=== PATIENT | male | born 1995 | race Caucasian/White ===

== ENCOUNTER 2016-09-20 12:59 | Emergency (ER) | payer OTHER ==
[2016-09-20] MEDS ORDERED: cefTRIAXone 1,000 MG VIAL IM ONE (13:06)
[2016-09-20] MEDS ORDERED: Sodium Chloride 0.9% 1,000 ML IV SCH (13:45)
[2016-09-20] MEDS ORDERED: cefTRIAXone 1,000 MG in Sodium Chloride 0.9% 50 ML IV ONE (13:55)
[2016-09-20] MEDS ORDERED: cefTRIAXone 1,000 MG VIAL ONE (13:59)
[2016-09-20] MEDS ORDERED: Morphine 2 MG/ML Syringe IVPUSH ONE (14:06)
[2016-09-20 14:27] VITALS: BP 147/84
--- NOTE | 2016-09-20 14:51 | EDM.PDOC ---
ED HPI GENERAL MEDICAL PROBLEM - General Chief Complaint: Upper Extremity Injury/Pain Stated Complaint: LEFT HAND CUT Time Seen by Provider: 09/20/16 13:31 Source of Information: Reports: Patient, Family, Other (coworker) History Limitations: Reports: Physical Impairment - History of Present Illness INITIAL COMMENTS - FREE TEXT/NARRATIVE: 20 y.o.w.m came to the ed after he cut himslf with table saw into his left little finger by accident at work. Pt was brought to the ed immediately after it happened. On arrival, the middle phalange was not connected the proximal phalanx. However, Cap refill at the tip of his left little finger was < 2sec. and there was sensation at his middle and distal phalanx, there was mod bleed. Pressure was applied, bleeding stopped. Pt denied any other medical issues at this time. 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 Pain Score (Numeric/FACES): 2 - Related Data Allergies Allergy/AdvReac Type Severity Reaction Status Date / Time No Known Allergies Allergy Verified 09/20/16 13:46 Home Meds: Home Meds NK [No Known Home Meds] 09/20/16 [History] Past Medical History - Past Health History Medical/Surgical History: Denies Medical/Surgical History Social & Family History - Tobacco Use Smoking Status *Q: Never Smoker Review of Systems - Review of Systems Review Of Systems: See Below Constitutional: Reports: No Symptoms Eyes: Reports: No Symptoms Ears: Reports: No Symptoms Nose: Reports: No Symptoms Mouth/Throat: Reports: No Symptoms Respiratory: Reports: No Symptoms Cardiovascular: Reports: No Symptoms GI/Abdominal: Reports: No Symptoms Genitourinary: Reports: No Symptoms Musculoskeletal: Reports: Other (left 5th finger injury) Skin: Reports: Wound (left 5th finger) Neurological: Reports: No Symptoms Psychiatric: Reports: No Symptoms ED EXAM, GENERAL - Physical Exam Exam: See Below Exam Limited By: No Limitations General Appearance: Alert, WD/WN, Mild Distress Eye Exam: Bilateral Eye: Normal Inspection Ears: Normal External Exam, Normal Canal Ear Exam: Bilateral Ear: Auricle Normal Nose: Normal Inspection, Normal Mucosa Throat/Mouth: Normal Inspection, Normal Lips, Normal Teeth Head: Atraumatic, Normocephalic Neck: Normal Inspection Respiratory/Chest: No Respiratory Distress, Lungs Clear, Normal Breath Sounds, No Accessory Muscle Use, Chest Non-Tender Cardiovascular: Normal Peripheral Pulses, Regular Rate, Rhythm, No Edema, No Gallop, No JVD, No Murmur, No Rub Peripheral Pulses: 1+: Femoral (L), Femoral (R) GI/Abdominal: Normal Bowel Sounds, Soft, Non-Tender, No Organomegaly (Male) Exam: No Hernia Rectal (Males) Exam: Deferred Back Exam: Normal Inspection, Full Range of Motion Extremities: Other (left middle phalanx of the 5th finger was attached loosely to the prox. phalanx. however, sensitivity and CAP refill were intact.) Neurological: Alert, Oriented, CN II-XII Intact, Normal Cognition, Normal Gait Psychiatric: Normal Affect, Normal Mood Skin Exam: Warm, Dry, Normal Color, Other (stellate lacerations left 5th finger. ) Lymphatic: No Adenopathy Course - Vital Signs Text/Narrative:: 20 y.o.w.m came to the ed after he cut himslf with table saw into his left little finger by accident at work. Pt was brought to the ed immediately after it happened. On arrival, the middle phalange was not connected the proximal phalanx. However, Cap refill at the tip of his left little finger was < 2sec. and there was sensation at his middle and distal phalanx, there was mod bleed. Pressure was applied, bleeding stopped. Pt denied any other medical issues at this time. PE: left middle phalanx of the 5th finger was attached loosely to the prox. phalanx. however, sensitivity and CAP refill were intact Imaging: prox, middle and distal phalanx were aliened well after finger splints were applied. Impression: Partial Amputation of left 5th finger, workman comp. Tx: [place], splint r 5th finger, NS Consultation: Dr. Currie, surgeon: Transfer pt to handsurgeon. Consultation: Dr. Serrano, Handsurgeon at [place]: Accepted the pt for further care. Reexam: Improved Plan: Transfer to [facility] ED, by EMS Last Recorded V/S: Last Vital Signs Temp 36.5 C 09/20/16 14:25 Pulse 90 09/20/16 14:25 Resp 16 09/20/16 14:25 BP 147/84 H 09/20/16 14:25 Pulse Ox 98 09/20/16 14:25 - Orders/Labs/Meds Orders: Active Orders 24 hr Category Date Time Status Hand Comp Min 3V Lt [CR] Stat Exams 09/20/16 13:12 Taken Labs: Laboratory Tests 09/20/16 09/20/16 Range/Units 13:46 13:46 WBC 6.8 (4.5-12.0) X10-3/uL RBC 5.37 (4.30-5.75) x10(6)uL Hgb 15.4 (11.5-15.5) g/dL Hct 45.5 (30.0-51.3) % MCV 84.8 (80-96) fL MCH 28.6 (27.7-33.6) pg MCHC 33.8 (32.2-35.4) g/dL RDW 12.4 (11.5-15.5) % Plt Count 226 (125-369) X10(3)uL MPV 8.6 (7.4-10.4) fL Neut % (Auto) 47.8 (46-82) % Lymph % (Auto) 38.8 H (13-37) % [place] % (Auto) 7.8 (4-12) % Eos % (Auto) 4 (1.0-5.0) % Baso % (Auto) 1 (0-2) % Neut # (Auto) 3.3 (1.6-8.3) # Lymph # (Auto) 2.6 (0.6-5.0) # [place] # (Auto) 0.5 (0.0-1.3) # Eos # (Auto) 0.3 (0.0-0.8) # Baso # (Auto) 0.1 (0.0-0.2) # Sodium 138 (135-145) mmol/L Potassium 3.6 (3.5-5.3) mmol/L Chloride 106 (100-110) mmol/L Carbon Dioxide 25 (23-29) mmol/L BUN 16 (5-20) mg/dL Creatinine 0.9 (0.5-1.0) mg/dL Est Cr Clr Drug Dosing 140.61 mL/min Estimated GFR (MDRD) > 60 (>60) BUN/Creatinine Ratio 17.8 (9-20) Glucose 127 H (80-116) mg/dL Calcium 9.3 (8.2-10.1) mg/dL Meds: Medications Discontinued Medications Generic Name Dose Route Start Last Admin Trade Name Noa PRN Reason Stop Dose Admin Ceftriaxone Sodium 1,000 mg 09/20/16 13:06 09/20/16 15:25 Rocephin IM 09/20/16 13:07 Not Given ONETIME ONE Ceftriaxone Sodium Confirm 09/20/16 13:59 09/20/16 15:25 Rocephin Administered 09/20/16 14:00 Not Given Dose 1,000 mg .ROUTE .STK-MED ONE Sodium Chloride 1,000 mls @ 125 mls/hr 09/20/16 13:45 09/20/16 14:09 Normal Saline IV 125 mls/hr ASDIRECTED [place]WRENCE Administration Ceftriaxone Sodium 1,000 mg/ 50 mls @ 100 mls/hr 09/20/16 13:55 09/20/16 14: 24 Sodium Chloride IV 09/20/16 14:24 100 mls/hr ONETIME ONE Administration Morphine Sulfate 2 mg 09/20/16 14:06 09/20/16 14:17 Morphine IVPUSH 09/20/16 14:07 2 mg ONETIME ONE Administration Departure - Departure Time of Disposition: 14:52 Disposition: DC/Tfer to Acute Hospital 02 Condition: Fair Clinical Impression: Finger amputation, traumatic Qualifiers: Encounter type: initial encounter Qualified Code(s): S68.119A - Complete traumatic metacarpophalangeal amputation of unspecified finger, initial encounter - Discharge Information Referrals: Daniel Negro MD [Primary Care Provider] - Forms: ED Department Discharge - My Orders Last 24 Hours: My Active Orders 09/20/16 13:12 Hand Comp Min 3V Lt [CR] Stat - Assessment/Plan Last 24 Hours: My Active Orders 09/20/16 13:12 Hand Comp Min 3V Lt [CR] Stat
--- NOTE | 2016-09-23 13:51 | CR ---
INDICATION: Skill saw injury to 5th digit. LEFT HAND: Three views of the left hand revealed subluxation at the proximal interphalangeal joint with posterior offset half the width of the joint surface of the proximal metaphysis of the middle phalanx. There appears to be a chip fracture fragment at the medial aspect of the joint surface of the distal metaphysis of the proximal phalanx. Overlying soft tissue injury appears fairly severe. No other bone or joint abnormality was identified. IMPRESSION: Fracture subluxation PIP joint 5th finger. MTDD
== END 2016-09-20 15:15 ==
LOC: FB.ED 12:59
DX: S68.117A Complete traumatic metacarpophalangeal amputation of left little finger, initial encounter (principal); W31.2XXA Contact with powered woodworking and forming machines, initial encounter; Y92.69 Other specified industrial and construction area as the place of occurrence of the external cause; Y99.0 Civilian activity done for income or pay
CPT/HCPCS: 36415; 73130; 80048; 85025; 96365; 96375; 99283; J0696; J2270; J7040; J7050

== ENCOUNTER 2024-09-27 11:37 | Emergency (ER) | payer BC, OTHER ==
[2024-09-27 11:48] VITALS: BP 147/97; PULSE 63
[2024-09-27] MEDS: Lidocaine 2% Viscous Solution 15 ML UD PO ONE (12:05)
[2024-09-27] MEDS: Ketorolac 30 MG/ML SDV IM ONE (12:05)
== END 2024-09-27 12:19 | disposition home or self-care (01) ==
LOC: FB.ED 11:37
DX: K04.7 Periapical abscess without sinus (principal); Z79.899 Other long term (current) drug therapy; Z87.891 Personal history of nicotine dependence
CPT/HCPCS: 96372; 99282; A9270; J1885